=== PATIENT | male | born 1960 | race Caucasian/White ===

== ENCOUNTER 2017-04-28 16:58 | Emergency (ER) | payer MEDICAID ==
[2017-04-28 17:09] VITALS: BMI 21.9
[2017-04-28 17:13] VITALS: BP 135/76; TEMP 98.7
--- NOTE | 2017-04-28 17:35 | C.PDOC ---
History Of Present Illness 56 y/o male presents to ED with complaints of persistent productive cough associated with chest pain for 9 days. Patient is a smoker and admits to SOB for few days. He stopped smoking. He was seen by PMD on 04/25 was given Tamiflu and cough medicine with no improvement. Patient denies fever, chills, vomiting or diarrhea. Time Seen by Provider: 04/28/17 17:18 Chief Complaint (Nursing): Cough, Cold, Congestion History Per: Patient History/Exam Limitations: no limitations Onset/Duration Of Symptoms: Days Current Symptoms Are (Timing): Still Present Associated Symptoms: Cough Past Medical History Reviewed: Historical Data, Nursing Documentation, Vital Signs Vital Signs: Last Vital Signs Temp 98.7 F 04/28/17 17:09 Pulse 100 H 04/28/17 18:23 Resp 18 04/28/17 18:23 BP 135/76 04/28/17 17:09 Pulse Ox 99 04/28/17 18:23 - Medical History PMH: No Chronic Diseases Surgical History: No Surg Hx Family History: States: No Known Family Hx - Social History Hx Alcohol Use: No Hx Substance Use: No - Immunization History Hx Tetanus Toxoid Vaccination: No Hx Influenza Vaccination: No Hx Pneumococcal Vaccination: No Review Of Systems Constitutional: Negative for: Fever, Chills Cardiovascular: Positive for: Chest Pain Respiratory: Positive for: Cough Gastrointestinal: Negative for: Nausea, Vomiting Skin: Negative for: Rash Physical Exam - Physical Exam Appears: Non-toxic, No Acute Distress Skin: Warm, Dry, No Rash Head: Atraumatic, Normacephalic Eye(s): bilateral: Normal Inspection, EOMI Oral Mucosa: Moist Throat: Normal, No Erythema, No Exudate Neck: Normal ROM, Supple Cardiovascular: Rhythm Regular, No Murmur Respiratory: Normal Breath Sounds, No Accessory Muscle Use, No Rales, No Rhonchi , No Wheezing Gastrointestinal/Abdominal: Soft, No Tenderness, No Guarding, No Rebound Extremity: Bilateral: Atraumatic, Normal ROM Neurological/Psych: Oriented x3, Normal Speech ED Course And Treatment O2 Sat by Pulse Oximetry: 97 (RA) Pulse Ox Interpretation: Normal Medical Decision Making Medical Decision Making: Impression: cough x 9 days Plan: CXR ordered CXR viewed by me and Dr Brunner agrees with infiltrate to right middle lobe. Will treat with Zithromax. Patient has no other co-morbidities and in no respiratory distress, can try outpatient treatment with oral antibiotics. First dose in ED. Rx given. Patient instructed to follow up with PMD Dr Gonzalez in few days to make sure symptoms resolve. Counseling was provided regarding the diagnosis and prognosis. All questions answered and there is agreement with the plan to discharge home with instructions. Patient is stable for discharge. Advised to return if symptoms persist or worsen. Disposition Counseled Patient/Family Regarding: Studies Performed, Diagnosis, Need For Followup, Rx Given - Disposition Referrals: Charmaine Gonzalez MD [Staff Provider] - Disposition: HOME/ ROUTINE Disposition Time: 18:15 Condition: GOOD Additional Instructions: Your xray shows pnuemonia on right side lung. Take Antibiotic daily as prescribed. You can also continue to take cough medicine as needed. Follow up with your doctor in 5-6 days. If symptoms persist or worsen return to Emergency Dept Prescriptions: Azithromycin [Zithromax] 250 mg PO DAILY #4 tab Instructions: Pneumonia in Adults Forms: [facility] [employer] (Italian) - POA Present On Arrival: None - Clinical Impression Clinical Impression: Pneumonia - PA / COLLEGE ADVISOR / Resident Statement MD/DO has reviewed & agrees with the documentation as recorded. - Scribe Statement The provider has reviewed the documentation as recorded by the Derrellibdontrell King All medical record entries made by the [facility] were at my direction and personally dictated by me. I have reviewed the chart and agree that the record accurately reflects my personal performance of the history, physical exam, medical decision making, and the department course for this patient. I have also personally directed, reviewed, and agree with the discharge instructions and disposition.
--- NOTE | 2017-04-28 18:16 | RAD ---
HISTORY: cough, SOB COMPARISON: No prior. TECHNIQUE: Chest PA and lateral FINDINGS: LUNGS: Right upper lobe infiltrate, pneumonia. PLEURA: No significant pleural effusion identified. No pneumothorax apparent. CARDIOVASCULAR: Normal. OSSEOUS STRUCTURES: No significant abnormalities. VISUALIZED UPPER ABDOMEN: Normal. OTHER FINDINGS: None. IMPRESSION: Alveolar consolidative changes/ infiltrate corresponding to the right upper lobe. This most likely represents acute pneumonia. Follow-up to resolution advised Concordant results with the preliminary interpretation rendered by the emergency department physician procedure.
[2017-04-28 18:24] VITALS: PULSE 100; RESP 18
[2017-04-28 18:29] VITALS: O2SAT 97
== END 2017-04-28 18:23 | disposition home or self-care (01) ==
LOC: C.ER 16:58
DX: J18.9 Pneumonia, unspecified organism (principal); F17.210 Nicotine dependence, cigarettes, uncomplicated